=== PATIENT | male | born 1980 | race Caucasian/White ===

== ENCOUNTER 2022-07-10 03:00 | Observation (INO) | payer OTHER ==
[~2022-07-10] VITALS: Ht 190.5 cm; Wt 131.0 kg
[2022-07-10 03:28] LABS: BASO # 0.1 K/mm3 (0.0-0.2); BASO % 1.4 % (0.0-2.0); EOS # 0.5 K/mm3 (0.0-0.7); EOS % 6.1 % (0.0-4.0); GRAN # 4.4 K/mm3 (1.4-6.5); GRAN % 50.9 % (42.2-75.2); HEMATOCRIT 43.6 % (42.0-52.0); HEMOGLOBIN 14.7 g/dl (13.5-18.0); LYMPH # 2.4 K/mm3 (1.2-3.4); LYMPH % 27.9 % (20.0-51.0); MEAN CELL VOLUME 87 fl (80.0-100.0); MEAN CORPUSCULAR HEMOGLOBIN 29 pg (27-31); MEAN CORPUSCULAR HGB CONC 34 g/dl (33.0-37.0); MONO # 1.1 K/mm3 (0.1-0.6); MONO % 12.5 % (1.7-9.3); PLATELET COUNT 327 K/mm3 (130-400); REDCELL DISTRIBUTION WIDTH-CV 12.5 % (11.5-14.5)
[2022-07-10 03:36] LABS: INR 1.1 (0.8-3.0); PROTHROMBIN TIME 12.1 SECONDS (9.7-12.8)
[2022-07-10 03:39] LABS: PARTIAL THROMBOPLASTIN TIME 30.8 SECONDS (26.0-37.0)
[2022-07-10 03:45] LABS: D-DIMER < 200.00 ng/mLDDu (200-230)
[2022-07-10 03:50] LABS: ALANINE AMINOTRANSFERASE 35 U/L (0-55); ALKALINE PHOSPHATASE 72 U/L (40-150); ANION GAP 10 mmol/L (7-16); AST,SGOT 24 U/L (5-34); BILIRUBIN,TOTAL 1.2 mg/dL (0.2-1.2); BLOOD UREA NITROGEN 14 mg/dL (9-21); CALCIUM 9.4 mg/dL (8.4-10.2); CARBON DIOXIDE 24 mmol/L (22-29); CHLORIDE 105 mmol/L (98-107); CREATININE, serum 1.15 mg/dL (0.72-1.25); GLUCOSE 101 mg/dL (70-99); POTASSIUM 3.8 mmol/L (3.5-4.5); SODIUM 139 mmol/L (136-145); TOTAL PROTEIN 7.8 gm/dL (6.2-8.1)
[2022-07-10 04:08] LABS: ALBUMIN 4.1 gm/dL (3.5-5.0); BILIRUBIN,TOTAL 1.2 mg/dL (0.2-1.2); TOTAL PROTEIN 7.5 gm/dL (6.2-8.1)
[2022-07-10 04:09] LABS: TROPONIN-I < 0.010 ng/mL (0.00-0.033)
[2022-07-10 04:35] LABS: BILIRUBIN,DIRECT 0.4 mg/dL (0.0-0.5)
--- NOTE | 2022-07-10 09:32 | NUR ---
Patient came to the room by wheelchair. Alert and oriented x 4, denies any chest pain at this time. No other discomforts. Assessment intake done.
[2022-07-10 10:16] VITALS: BP 134/83; PULSE 89; TEMP 97.7
[2022-07-10] MEDS ORDERED: PRINIVIL5 MG PO (12:31)
[2022-07-10] MEDS ORDERED: PROTONIX 40MG T40 MG PO (12:35)
[2022-07-10] MEDS ORDERED: ASPIRIN 81M81 MG/TA2 PO (12:37)
[2022-07-10 12:54] VITALS: BP 134/82; PULSE 68; TEMP 97.7
--- NOTE | 2022-07-10 16:19 | NUR ---
Patient and were provided with discharge information. All questions answered. IV and telemetry were discontinued. Pt was accompanied to the patient's entrance.
== END 2022-07-10 16:00 | disposition home or self-care (01) ==
LOC: COL.ER 03:00 → MEDICAL 06:37
PROVIDERS: Emergency Medicine; ADMIT Internal Medicine
DX: R07.89 Other chest pain (principal); R22.2 Localized swelling, mass and lump, trunk; I10 Essential (primary) hypertension; Z87.891 Personal history of nicotine dependence; Z28.310 Unvaccinated for COVID-19; Z28.9 Immunization not carried out for unspecified reason
CPT/HCPCS: G0378; Q9967